=== PATIENT | male | born 1955 | race African-American/Black ===

== ENCOUNTER 2020-12-01 13:50 | Inpatient (IN) | payer OTHER ==
[2020-12-01 16:24] VITALS: BMI 23.2
[2020-12-01] MEDS ORDERED: ACETAMINOPHEN 325 MG TABLET (FP) PO PRN (21:00)
[2020-12-01] MEDS ORDERED: guaiFENesin 200 MG/10 ML 10 ML UNIT-DOSE CUPS PO PRN (21:00)
[2020-12-01] MEDS ORDERED: MAGNESIUM HYDROX 2400MG/30ML ORAL SUSPENSION 30 ML CUP PO PRN (21:00)
[2020-12-01] MEDS ORDERED: P-EPHED 60MG/TRIPROLIDI 2.5MG TABLET PO PRN (21:00)
[2020-12-01] MEDS ORDERED: MAG HYDROX/AL HYDROX/SIMETH 30 ML UNIT-DOSE CUP PO PRN (21:00)
[2020-12-01] MEDS ORDERED: IBUPROFEN 400 MG TABLET (FP) PO PRN (21:00)
[2020-12-01] MEDS ORDERED: MAGNESIUM CITRATE 300 ML BOTTLE PO PRN (21:00)
[2020-12-01] MEDS ORDERED: MELATONIN 5 MG TABLETS PO SCH (22:00)
[2020-12-01] MEDS: THIAMINE HCL 100 MG TABLET (FP) PO SCH (22:38)
[2020-12-02] MEDS: METHADONE HCL 10 MG TABLET PO SCH (08:29)
[2020-12-02] MEDS: PARoxetine HCL 20 MG TABLET PO SCH (09:28)
[2020-12-02] MEDS: PRENATAL VITAMINS W/ FOLIC ACID TABLET (FP) PO SCH (09:28)
[2020-12-02 11:36] LABS: HEMATOCRIT 36.6 % (35.4-49); HEMOGLOBIN 11.7 GM/dL (11.7-16.9); MCH 29.3 pg (25.7-33.7); MEAN CELL VOLUME 91.5 fl (80-96); MEAN PLT VOLUME 8.3 fl (7.5-11.1); PLATELET COUNT 197 K/MM3 (134-434); RDW 14.5 % (11.9-15.9); WHITE BLOOD COUNT 5.9 K/mm3 (4.0-10.0)
[2020-12-02 11:38] LABS: POTASSIUM 3.9 mmol/L (3.5-5.1)
[2020-12-02 11:40] LABS: CALCIUM 8.8 mg/dL (8.5-10.1)
[2020-12-02 11:41] LABS: ALBUMIN 3.4 g/dl (3.4-5.0); BLOOD UREA NITROGEN 12.5 mg/dL (7-18)
[2020-12-02 11:44] LABS: CREATININE 0.8 mg/dL (0.55-1.3)
[2020-12-02 11:45] LABS: BILIRUBIN,TOTAL 0.3 mg/dL (0.2-1)
[2020-12-02 11:46] LABS: TOT PROT 6.7 g/dl (6.4-8.2)
[2020-12-02] MEDS: THIAMINE HCL 100 MG TABLET (FP) PO SCH (21:11)
[2020-12-02] MEDS: MELATONIN 5 MG TABLETS PO PRN (21:11)
[2020-12-02] MEDS ORDERED: QUEtiapine FUMARATE 400 MG TABLET PO SCH (22:00)
[2020-12-03] MEDS: METHADONE HCL 10 MG TABLET PO SCH (06:31)
[2020-12-03] MEDS: PARoxetine HCL 20 MG TABLET PO SCH (11:08)
[2020-12-03] MEDS: PRENATAL VITAMINS W/ FOLIC ACID TABLET (FP) PO SCH (11:08)
[2020-12-03] MEDS: MELATONIN 5 MG TABLETS PO PRN (21:44)
[2020-12-03] MEDS: THIAMINE HCL 100 MG TABLET (FP) PO SCH (21:44)
[2020-12-03] MEDS: QUEtiapine FUMARATE 100 MG TABLET (FP) PO SCH (21:45)
[2020-12-04] MEDS: LOPERAMIDE HCL 2 MG CAPSULE PO PRN (02:58)
[2020-12-04] MEDS ORDERED: MASKS NR ONE (06:35)
[2020-12-04] MEDS: METHADONE HCL 10 MG TABLET PO SCH (06:36)
[2020-12-04] MEDS: PARoxetine HCL 20 MG TABLET PO SCH (10:28)
[2020-12-04] MEDS: PRENATAL VITAMINS W/ FOLIC ACID TABLET (FP) PO SCH (10:29)
[2020-12-04 20:10] LABS: PH,URINE 5.5 (5.0-8.0); URINE APPEARANCE CLEAR; URINE BILIRUBIN NEGATIVE (NEGATIVE); URINE COLOR DK YELLOW; URINE GLUCOSE (UA) NEGATIVE (NEGATIVE); URINE KETONE TRACE (NEGATIVE); URINE LEUK ESTERASE NEGATIVE (NEGATIVE); URINE NITRITE NEGATIVE (NEGATIVE); URINE PROTEIN NEGATIVE (NEGATIVE); URINE UROBILINOGEN 0.2 mg/dL (0.2-1.0)
[2020-12-04] MEDS: THIAMINE HCL 100 MG TABLET (FP) PO SCH (21:09)
[2020-12-04] MEDS: MELATONIN 5 MG TABLETS PO PRN (21:10)
[2020-12-04] MEDS: QUEtiapine FUMARATE 100 MG TABLET (FP) PO SCH (21:10)
[2020-12-05] MEDS: METHADONE HCL 10 MG TABLET PO SCH (06:19)
[2020-12-05] MEDS: PRENATAL VITAMINS W/ FOLIC ACID TABLET (FP) PO SCH (11:00)
[2020-12-05] MEDS: PARoxetine HCL 20 MG TABLET PO SCH (11:00)
[2020-12-05] MEDS: THIAMINE HCL 100 MG TABLET (FP) PO SCH (21:20)
[2020-12-05] MEDS: QUEtiapine FUMARATE 100 MG TABLET (FP) PO SCH (21:20)
[2020-12-05] MEDS: LOPERAMIDE HCL 2 MG CAPSULE PO PRN (22:06)
[2020-12-06] MEDS: METHADONE HCL 10 MG TABLET PO SCH (06:16)
[2020-12-06] MEDS: LOPERAMIDE HCL 2 MG CAPSULE PO PRN (06:18)
[2020-12-06] MEDS: PRENATAL VITAMINS W/ FOLIC ACID TABLET (FP) PO SCH (10:05)
[2020-12-06] MEDS: PARoxetine HCL 20 MG TABLET PO SCH (10:05)
[2020-12-06] MEDS: THIAMINE HCL 100 MG TABLET (FP) PO SCH (21:34)
[2020-12-06] MEDS: QUEtiapine FUMARATE 100 MG TABLET (FP) PO SCH (21:34)
[2020-12-06] MEDS: MELATONIN 5 MG TABLETS PO PRN (21:35)
[2020-12-06] MEDS ORDERED: PT OWN MED DRAWER 7, Y5N ONE (21:57)
[2020-12-07] MEDS: METHADONE HCL 10 MG TABLET PO SCH (06:34)
[2020-12-07] MEDS: PARoxetine HCL 20 MG TABLET PO SCH (10:20)
[2020-12-07] MEDS: PRENATAL VITAMINS W/ FOLIC ACID TABLET (FP) PO SCH (10:20)
[2020-12-07] MEDS: THIAMINE HCL 100 MG TABLET (FP) PO SCH (21:28)
[2020-12-07] MEDS: QUEtiapine FUMARATE 100 MG TABLET (FP) PO SCH (21:29)
[2020-12-07] MEDS: MELATONIN 5 MG TABLETS PO PRN (21:29)
[2020-12-08] MEDS ORDERED: METHADONE HCL 40 MG DISPERSABLE TABLET ONE (04:05)
[2020-12-08] MEDS ORDERED: METHADONE HCL 10 MG TABLET ONE (04:05)
[2020-12-08] MEDS ORDERED: METHADONE HCL 10 MG TABLET PO SCH (06:00)
[2020-12-08] MEDS: METHADONE 40 MG, METHADONE 20 MG PO SCH (06:23)
[2020-12-08] MEDS: PRENATAL VITAMINS W/ FOLIC ACID TABLET (FP) PO SCH (10:05)
[2020-12-08] MEDS: PARoxetine HCL 20 MG TABLET PO SCH (10:05)
[2020-12-08] MEDS: MELATONIN 5 MG TABLETS PO PRN (21:18)
[2020-12-08] MEDS: QUEtiapine FUMARATE 100 MG TABLET (FP) PO SCH (21:18)
[2020-12-08] MEDS: THIAMINE HCL 100 MG TABLET (FP) PO SCH (21:18)
[2020-12-08] MEDS: LOPERAMIDE HCL 2 MG CAPSULE PO PRN (21:19)
[2020-12-09] MEDS ORDERED: METHADONE HCL 40 MG DISPERSABLE TABLET ONE (03:16)
[2020-12-09] MEDS ORDERED: METHADONE HCL 10 MG TABLET ONE (03:16)
[2020-12-09] MEDS: LOPERAMIDE HCL 2 MG CAPSULE PO PRN (06:17)
[2020-12-09] MEDS: METHADONE 40 MG, METHADONE 20 MG PO SCH (06:17)
[2020-12-09] MEDS: PARoxetine HCL 20 MG TABLET PO SCH (10:32)
[2020-12-09] MEDS: PRENATAL VITAMINS W/ FOLIC ACID TABLET (FP) PO SCH (10:32)
[2020-12-09] MEDS: MELATONIN 5 MG TABLETS PO PRN (21:07)
[2020-12-09] MEDS: THIAMINE HCL 100 MG TABLET (FP) PO SCH (21:07)
[2020-12-09] MEDS: QUEtiapine FUMARATE 50 MG TABLET PO SCH (21:08)
[2020-12-10] MEDS ORDERED: METHADONE HCL 10 MG TABLET ONE (03:13)
[2020-12-10] MEDS ORDERED: METHADONE HCL 40 MG DISPERSABLE TABLET ONE (03:13)
[2020-12-10] MEDS: METHADONE 40 MG, METHADONE 20 MG PO SCH (06:37)
[2020-12-10] MEDS: PARoxetine HCL 10 MG TABLET PO SCH (10:12)
[2020-12-10] MEDS: PRENATAL VITAMINS W/ FOLIC ACID TABLET (FP) PO SCH (10:12)
[2020-12-10] MEDS: MELATONIN 5 MG TABLETS PO PRN (21:19)
[2020-12-10] MEDS: THIAMINE HCL 100 MG TABLET (FP) PO SCH (21:19)
[2020-12-10] MEDS: QUEtiapine FUMARATE 50 MG TABLET PO SCH (21:20)
[2020-12-11] MEDS ORDERED: METHADONE HCL 10 MG TABLET ONE (03:07)
[2020-12-11] MEDS ORDERED: METHADONE HCL 40 MG DISPERSABLE TABLET ONE (03:07)
[2020-12-11] MEDS: METHADONE 40 MG, METHADONE 20 MG PO SCH (06:52)
[2020-12-11] MEDS ORDERED: PT OWN MED DRAWER 7, Y5N ONE (08:57)
[2020-12-11] MEDS: PRENATAL VITAMINS W/ FOLIC ACID TABLET (FP) PO SCH (09:27)
[2020-12-11] MEDS: PARoxetine HCL 10 MG TABLET PO SCH (09:27)
[2020-12-11] MEDS: THIAMINE HCL 100 MG TABLET (FP) PO SCH (21:07)
[2020-12-11] MEDS: QUEtiapine FUMARATE 50 MG TABLET PO SCH (21:07)
[2020-12-11] MEDS: MELATONIN 5 MG TABLETS PO PRN (21:07)
[2020-12-12] MEDS ORDERED: METHADONE HCL 10 MG TABLET ONE (03:23)
[2020-12-12] MEDS ORDERED: METHADONE HCL 40 MG DISPERSABLE TABLET ONE (03:23)
[2020-12-12] MEDS: METHADONE 40 MG, METHADONE 20 MG PO SCH (06:45)
[2020-12-12] MEDS: PRENATAL VITAMINS W/ FOLIC ACID TABLET (FP) PO SCH (09:47)
[2020-12-12] MEDS: PARoxetine HCL 10 MG TABLET PO SCH (09:47)
[2020-12-12] MEDS: MELATONIN 5 MG TABLETS PO PRN (21:04)
[2020-12-12] MEDS: THIAMINE HCL 100 MG TABLET (FP) PO SCH (21:04)
[2020-12-12] MEDS: QUEtiapine FUMARATE 50 MG TABLET PO SCH (21:04)
[2020-12-13] MEDS ORDERED: METHADONE HCL 40 MG DISPERSABLE TABLET ONE (03:45)
[2020-12-13] MEDS ORDERED: METHADONE HCL 10 MG TABLET ONE (03:45)
[2020-12-13] MEDS: METHADONE 40 MG, METHADONE 20 MG PO SCH (06:22)
[2020-12-13] MEDS: PARoxetine HCL 10 MG TABLET PO SCH (10:00)
[2020-12-13] MEDS: PRENATAL VITAMINS W/ FOLIC ACID TABLET (FP) PO SCH (10:01)
[2020-12-13] MEDS: QUEtiapine FUMARATE 50 MG TABLET PO SCH (21:46)
[2020-12-13] MEDS: MELATONIN 5 MG TABLETS PO PRN (21:47)
[2020-12-13] MEDS: THIAMINE HCL 100 MG TABLET (FP) PO SCH (21:47)
[2020-12-14] MEDS ORDERED: METHADONE HCL 40 MG DISPERSABLE TABLET ONE (03:26)
[2020-12-14] MEDS ORDERED: METHADONE HCL 10 MG TABLET ONE (03:26)
[2020-12-14] MEDS: METHADONE 40 MG, METHADONE 20 MG PO SCH (06:38)
[2020-12-14] MEDS: PRENATAL VITAMINS W/ FOLIC ACID TABLET (FP) PO SCH (10:07)
[2020-12-14] MEDS: PARoxetine HCL 10 MG TABLET PO SCH (10:07)
[2020-12-14] MEDS: MELATONIN 5 MG TABLETS PO PRN (21:22)
[2020-12-14] MEDS: THIAMINE HCL 100 MG TABLET (FP) PO SCH (21:22)
[2020-12-14] MEDS: QUEtiapine FUMARATE 50 MG TABLET PO SCH (21:22)
[2020-12-15] MEDS ORDERED: METHADONE HCL 40 MG DISPERSABLE TABLET ONE (06:08)
[2020-12-15] MEDS ORDERED: METHADONE HCL 10 MG TABLET ONE (06:08)
[2020-12-15] MEDS: METHADONE 40 MG, METHADONE 20 MG PO SCH (06:43)
[2020-12-15] MEDS ORDERED: PT OWN MED DRAWER 7, Y5N ONE (08:34)
[2020-12-15] MEDS: PARoxetine HCL 10 MG TABLET PO SCH (09:22)
[2020-12-15] MEDS: PRENATAL VITAMINS W/ FOLIC ACID TABLET (FP) PO SCH (09:22)
[2020-12-15] MEDS: THIAMINE HCL 100 MG TABLET (FP) PO SCH (21:15)
[2020-12-15] MEDS: MELATONIN 5 MG TABLETS PO PRN (21:15)
[2020-12-15] MEDS: QUEtiapine FUMARATE 50 MG TABLET PO SCH (21:15)
[2020-12-16] MEDS ORDERED: METHADONE HCL 10 MG TABLET ONE (03:15)
[2020-12-16] MEDS ORDERED: METHADONE HCL 40 MG DISPERSABLE TABLET ONE (03:16)
[2020-12-16] MEDS: METHADONE 40 MG, METHADONE 20 MG PO SCH (06:34)
[2020-12-16] MEDS: PARoxetine HCL 10 MG TABLET PO SCH (10:02)
[2020-12-16] MEDS: PRENATAL VITAMINS W/ FOLIC ACID TABLET (FP) PO SCH (10:02)
[2020-12-16] MEDS ORDERED: PT OWN MED DRAWER 7, Y5N ONE (12:23)
[2020-12-16] MEDS: MELATONIN 5 MG TABLETS PO PRN (21:06)
[2020-12-16] MEDS: THIAMINE HCL 100 MG TABLET (FP) PO SCH (21:06)
[2020-12-16] MEDS: QUEtiapine FUMARATE 50 MG TABLET PO SCH (21:06)
[2020-12-17] MEDS ORDERED: METHADONE HCL 10 MG TABLET ONE (03:16)
[2020-12-17] MEDS ORDERED: METHADONE HCL 40 MG DISPERSABLE TABLET ONE (03:17)
[2020-12-17] MEDS: METHADONE 40 MG, METHADONE 20 MG PO SCH (06:32)
[2020-12-17] MEDS ORDERED: PT OWN MED DRAWER 7, Y5N ONE ×2 (08:50→13:15)
[2020-12-17] MEDS: PARoxetine HCL 10 MG TABLET PO SCH (09:47)
[2020-12-17] MEDS: PRENATAL VITAMINS W/ FOLIC ACID TABLET (FP) PO SCH (09:47)
[2020-12-17] MEDS ORDERED: ALBUTEROL SO4 HFA INHALER IH PRN (11:56)
[2020-12-17] MEDS: ENALAPRIL MALEATE 10 MG TABLET PO SCH (12:55)
[2020-12-17] MEDS: amLODIPine BESYLATE 10 MG TABLET (FP) PO SCH (12:55)
[2020-12-17] MEDS: THIAMINE HCL 100 MG TABLET (FP) PO SCH (21:15)
[2020-12-17] MEDS: MELATONIN 5 MG TABLETS PO PRN (21:15)
[2020-12-17] MEDS: QUEtiapine FUMARATE 50 MG TABLET PO SCH (21:16)
[2020-12-17] MEDS: BUDESONIDE/FORMETEROL FUMARATE 80/4.5 mcg INHALER IH SCH (21:17)
[2020-12-18] MEDS ORDERED: METHADONE HCL 40 MG DISPERSABLE TABLET ONE (03:29)
[2020-12-18] MEDS ORDERED: METHADONE HCL 10 MG TABLET ONE (03:29)
[2020-12-18] MEDS: METHADONE 40 MG, METHADONE 20 MG PO SCH (06:37)
[2020-12-18] MEDS ORDERED: PT OWN MED DRAWER 7, Y5N ONE ×2 (08:40→14:05)
[2020-12-18] MEDS: amLODIPine BESYLATE 10 MG TABLET (FP) PO SCH (10:07)
[2020-12-18] MEDS: PRENATAL VITAMINS W/ FOLIC ACID TABLET (FP) PO SCH (10:07)
[2020-12-18] MEDS: PARoxetine HCL 10 MG TABLET PO SCH (10:07)
[2020-12-18] MEDS: ENALAPRIL MALEATE 10 MG TABLET PO SCH (10:07)
[2020-12-18] MEDS: BUDESONIDE/FORMETEROL FUMARATE 80/4.5 mcg INHALER IH SCH ×2 (10:09→21:08)
[2020-12-18] MEDS: THIAMINE HCL 100 MG TABLET (FP) PO SCH (21:06)
[2020-12-18] MEDS: QUEtiapine FUMARATE 50 MG TABLET PO SCH (21:06)
[2020-12-18] MEDS: MELATONIN 5 MG TABLETS PO PRN (21:06)
[2020-12-19] MEDS ORDERED: METHADONE HCL 10 MG TABLET ONE (03:26)
[2020-12-19] MEDS ORDERED: METHADONE HCL 40 MG DISPERSABLE TABLET ONE (03:26)
[2020-12-19] MEDS: METHADONE 40 MG, METHADONE 20 MG PO SCH (06:31)
[2020-12-19] MEDS ORDERED: PT OWN MED DRAWER 7, Y5N ONE (08:39)
[2020-12-19] MEDS: ENALAPRIL MALEATE 10 MG TABLET PO SCH (09:36)
[2020-12-19] MEDS: PRENATAL VITAMINS W/ FOLIC ACID TABLET (FP) PO SCH (09:36)
[2020-12-19] MEDS: amLODIPine BESYLATE 10 MG TABLET (FP) PO SCH (09:36)
[2020-12-19] MEDS: PARoxetine HCL 10 MG TABLET PO SCH (09:36)
[2020-12-19] MEDS: BUDESONIDE/FORMETEROL FUMARATE 80/4.5 mcg INHALER IH SCH ×2 (09:37→21:05)
[2020-12-19] MEDS: THIAMINE HCL 100 MG TABLET (FP) PO SCH (21:04)
[2020-12-19] MEDS: QUEtiapine FUMARATE 50 MG TABLET PO SCH (21:04)
[2020-12-20] MEDS ORDERED: METHADONE HCL 10 MG TABLET ONE (03:15)
[2020-12-20] MEDS ORDERED: METHADONE HCL 40 MG DISPERSABLE TABLET ONE (03:15)
[2020-12-20] MEDS: METHADONE 40 MG, METHADONE 20 MG PO SCH (06:40)
[2020-12-20] MEDS ORDERED: PT OWN MED DRAWER 7, Y5N ONE (08:21)
[2020-12-20] MEDS: amLODIPine BESYLATE 10 MG TABLET (FP) PO SCH (09:15)
[2020-12-20] MEDS: BUDESONIDE/FORMETEROL FUMARATE 80/4.5 mcg INHALER IH SCH ×2 (09:16→21:06)
[2020-12-20] MEDS: PARoxetine HCL 10 MG TABLET PO SCH (09:16)
[2020-12-20] MEDS: ENALAPRIL MALEATE 10 MG TABLET PO SCH (09:16)
[2020-12-20] MEDS: PRENATAL VITAMINS W/ FOLIC ACID TABLET (FP) PO SCH (09:16)
[2020-12-20] MEDS: THIAMINE HCL 100 MG TABLET (FP) PO SCH (21:05)
[2020-12-20] MEDS: MELATONIN 5 MG TABLETS PO PRN (21:05)
[2020-12-20] MEDS: QUEtiapine FUMARATE 50 MG TABLET PO SCH (21:05)
[2020-12-21] MEDS ORDERED: METHADONE HCL 10 MG TABLET ONE (03:18)
[2020-12-21] MEDS ORDERED: METHADONE HCL 40 MG DISPERSABLE TABLET ONE (03:18)
[2020-12-21] MEDS: METHADONE 40 MG, METHADONE 20 MG PO SCH (06:34)
[2020-12-21] MEDS ORDERED: PT OWN MED DRAWER 7, Y5N ONE (08:41)
[2020-12-21] MEDS: PARoxetine HCL 10 MG TABLET PO SCH (10:05)
[2020-12-21] MEDS: PRENATAL VITAMINS W/ FOLIC ACID TABLET (FP) PO SCH (10:05)
[2020-12-21] MEDS: amLODIPine BESYLATE 10 MG TABLET (FP) PO SCH (10:05)
[2020-12-21] MEDS: BUDESONIDE/FORMETEROL FUMARATE 80/4.5 mcg INHALER IH SCH ×2 (10:06→21:09)
[2020-12-21] MEDS: ENALAPRIL MALEATE 10 MG TABLET PO SCH (10:06)
[2020-12-21] MEDS: THIAMINE HCL 100 MG TABLET (FP) PO SCH (21:09)
[2020-12-21] MEDS: QUEtiapine FUMARATE 50 MG TABLET PO SCH (21:09)
[2020-12-21] MEDS: MELATONIN 5 MG TABLETS PO PRN (21:09)
[2020-12-22] MEDS ORDERED: METHADONE HCL 40 MG DISPERSABLE TABLET ONE (04:04)
[2020-12-22] MEDS ORDERED: METHADONE HCL 10 MG TABLET ONE (04:04)
[2020-12-22] MEDS: METHADONE 40 MG, METHADONE 20 MG PO SCH (06:26)
[2020-12-22] MEDS ORDERED: PT OWN MED DRAWER 7, Y5N ONE ×2 (08:55→13:24)
[2020-12-22] MEDS: PRENATAL VITAMINS W/ FOLIC ACID TABLET (FP) PO SCH (09:52)
[2020-12-22] MEDS: amLODIPine BESYLATE 10 MG TABLET (FP) PO SCH (09:52)
[2020-12-22] MEDS: PARoxetine HCL 10 MG TABLET PO SCH (09:52)
[2020-12-22] MEDS: BUDESONIDE/FORMETEROL FUMARATE 80/4.5 mcg INHALER IH SCH ×2 (09:52→21:08)
[2020-12-22] MEDS: ENALAPRIL MALEATE 10 MG TABLET PO SCH (09:52)
[2020-12-22] MEDS: THIAMINE HCL 100 MG TABLET (FP) PO SCH (21:05)
[2020-12-22] MEDS: MELATONIN 5 MG TABLETS PO PRN (21:05)
[2020-12-22] MEDS: QUEtiapine FUMARATE 50 MG TABLET PO SCH (21:06)
[2020-12-23] MEDS ORDERED: METHADONE HCL 40 MG DISPERSABLE TABLET ONE (06:27)
[2020-12-23] MEDS ORDERED: METHADONE HCL 10 MG TABLET ONE (06:27)
[2020-12-23] MEDS: METHADONE 40 MG, METHADONE 20 MG PO SCH (06:27)
[2020-12-23 06:43] VITALS: TEMP 97.5
[2020-12-23] MEDS ORDERED: PT OWN MED DRAWER 7, Y5N ONE (09:02)
[2020-12-23] MEDS: PRENATAL VITAMINS W/ FOLIC ACID TABLET (FP) PO SCH (09:09)
[2020-12-23] MEDS: PARoxetine HCL 10 MG TABLET PO SCH (09:09)
[2020-12-23] MEDS: BUDESONIDE/FORMETEROL FUMARATE 80/4.5 mcg INHALER IH SCH (09:09)
[2020-12-23] MEDS: amLODIPine BESYLATE 10 MG TABLET (FP) PO SCH (09:09)
[2020-12-23] MEDS: ENALAPRIL MALEATE 10 MG TABLET PO SCH (09:10)
[2020-12-23 09:14] VITALS: BP 117/74; PULSE 80
== END 2020-12-23 09:18 | disposition home or self-care (01) | DRG 772 ==
LOC: YASAS 13:50 → Y3E 20:27
PROVIDERS: ADMIT Allergy & Immunology; ATTEND Allergy & Immunology
PROC: HZ42ZZZ Group Counseling for Substance Abuse Treatment, Cognitive-Behavioral (ICD-10-PCS; principal; 2020-12-01)
DX: F10.20 Alcohol dependence, uncomplicated (principal); F11.20 Opioid dependence, uncomplicated; F17.210 Nicotine dependence, cigarettes, uncomplicated; F31.9 Bipolar disorder, unspecified; F43.10 Post-traumatic stress disorder, unspecified; I10 Essential (primary) hypertension; J45.909 Unspecified asthma, uncomplicated; R45.89 Other symptoms and signs involving emotional state; R76.11 Nonspecific reaction to tuberculin skin test without active tuberculosis; Z62.810 Personal history of physical and sexual abuse in childhood; Z91.5 Personal history of self-harm; Z59.0 Homelessness
CPT/HCPCS: 36415; 71046-TC-FY; 80053; 81003; 85027; 86780; 93005; 93010; C9803; U0003